=== PATIENT | female | born 1960 | race Two or more races ===

== ENCOUNTER → 2019-01-27 | Outpatient (CLI) | payer OTHER ==
--- NOTE | 2019-01-27 15:08 | RAD ---
Right lower extremity arterial duplex ultrasound 01/27/2019 INDICATION: Right leg pain. Skin texture and color changes. COMPARISON STUDY: None TECHNIQUE: Ultrasound evaluation of the major arteries of the right lower extremity were performed including color Doppler imaging spectral analysis. Normal waveforms and morphology are seen in the right common femoral artery. Profunda artery. Patent proximally. Right superficial femoral artery appears patent. Popliteal artery appears patent. Peroneal, anterior tibial and posterior tibial arteries are patent. Dorsalis pedis artery is patent. Minimal diffuse atherosclerotic vascular disease is seen. IMPRESSION: Mild changes of atherosclerotic vascular disease without evidence of hemodynamically significant stenosis involving the major arteries of the right lower extremity Electronically signed by: Neeraj Gilliland MD (01/27/2019 3:05 PM) [id number]
== END | disposition home or self-care (01) ==
LOC: US 13:45
PROVIDERS: ATTEND Physician Assistant Medical
DX: I70.291 Other atherosclerosis of native arteries of extremities, right leg (principal)
CPT/HCPCS: 93926